=== PATIENT | female | born 1970 | race American Indian/Alaskan Native ===

== ENCOUNTER 2017-04-21 23:30 | Emergency (ER) | payer SELFPAY ==
[2017-04-21] MEDS ORDERED: Lidocaine 1% w Epi 1:100,000 Inj ONE (23:47)
[2017-04-21 23:48] VITALS: RESP 20
[2017-04-21] MEDS ORDERED: Absorbable Gelatin Sponge Size 12-7 MM STA (23:59)
[2017-04-22] MEDS ORDERED: Morphine 4 MG/ML VIAL ONE (00:15)
--- NOTE | 2017-04-22 01:18 | C.PDOC ---
History Of Present Illness 46 year old female who presents to the ER SP dental extraction today. Patient states she had 2 of her right upper posterior molars removed earlier today; upon removing the gauze, patient began to bleed from the extraction site and is complaining of pain. Denies dizziness or LOC. Time Seen by Provider: 04/21/17 23:53 Chief Complaint (Nursing): Dental Pain History Per: Patient History/Exam Limitations: no limitations Onset/Duration Of Symptoms: Hrs Current Symptoms Are (Timing): Still Present Recent travel outside of the [place]: No Past Medical History Reviewed: Historical Data, Nursing Documentation, Vital Signs Vital Signs: Last Vital Signs Temp 98.2 F 04/22/17 01:28 Pulse 85 04/22/17 01:28 Resp 20 04/22/17 01:28 BP 127/83 04/22/17 01:28 Pulse Ox 98 04/22/17 01:28 - Medical History PMH: Multiple Sclerosis Surgical History: No Surg Hx Family History: States: Unknown Family Hx - Social History Hx Alcohol Use: No Hx Substance Use: No - Immunization History Hx Tetanus Toxoid Vaccination: No Hx Influenza Vaccination: No Hx Pneumococcal Vaccination: No Review Of Systems ENT: Positive for: Mouth Pain. Negative for: Mouth Swelling, Throat Pain Neurological: Negative for: Dizziness, Other (LOC) Physical Exam - Physical Exam Appears: Non-toxic Skin: Normal Color, Warm, Dry Head: Atraumatic, Normacephalic Nose: Normal Oral Mucosa: Moist Tongue: Normal Appearing, No Bleeding Lips: Normal Appearing, No Laceration Gingiva: Bleeding (Right upper gum at extraction site) Throat: Normal, No Erythema, No Exudate Neck: Normal, Supple ED Course And Treatment O2 Sat by Pulse Oximetry: 97 (Room air) Pulse Ox Interpretation: Normal Progress Note: Gel foam applied to extraction site with minial decrease to bleeding. Gel foam spray lidocaine and epi with good relief to bleeding. Morphine administered. Patient advised to follow up with dentist. Disposition Counseled Patient/Family Regarding: Diagnosis, Need For Followup, Rx Given - Disposition Referrals: Dental, Dentist [Other] Disposition: HOME/ ROUTINE Disposition Time: 01:12 Condition: STABLE Additional Instructions: Please continue pain meds prescribed by dentist Follow up with dentist tomorrow Avoid drinking from straw and no vigorous spitting Return to ER if worse Instructions: Tooth Extraction (ED) Forms: [employer] (Sen[place]e), Work Excuse - Clinical Impression Clinical Impression: Gums, bleeding - Scribe Statement The provider has reviewed the documentation as recorded by the Scribsolitario Toussaint All medical record entries made by the Lizethibe were at my direction and personally dictated by me. I have reviewed the chart and agree that the record accurately reflects my personal performance of the history, physical exam, medical decision making, and the department course for this patient. I have also personally directed, reviewed, and agree with the discharge instructions and disposition.
[2017-04-22 01:29] VITALS: BP 127/83; PULSE 85; TEMP 98.2
[2017-04-22 02:17] VITALS: O2SAT 97
== END 2017-04-22 01:30 | disposition home or self-care (01) ==
LOC: C.ER 23:30
DX: K06.8 Other specified disorders of gingiva and edentulous alveolar ridge (principal)
CPT/HCPCS: 96372; 99282; J2270

== ENCOUNTER 2018-01-07 16:28 | Emergency (ER) | payer SELFPAY ==
[2018-01-07 16:55] VITALS: BP 136/84; PULSE 72; RESP 19; TEMP 98.1; O2SAT 100
== END 2018-01-07 16:46 | disposition left against medical advice (07) ==
LOC: C.ER 16:28
DX: Z02.89 Encounter for other administrative examinations (principal); S06.0X9A Concussion with loss of consciousness of unspecified duration, initial encounter